=== PATIENT | male | born 1970 | race Caucasian/White ===

== ENCOUNTER 2021-05-05 03:16 | Emergency (ER) | payer OTHER, SELFPAY ==
[2021-05-05 03:28] VITALS: BP 133/82; PULSE 98; RESP 18; TEMP 36.9; O2SAT 99; BMI 29.3
--- NOTE | 2021-05-05 03:37 | ED_ITS ---
HPI - Back Pain/Injury General: Chief Complaint: Back Pain/Injury Stated Complaint: Back Pain Seized up Time Seen by Provider: 05/05/21 03:17 Source: patient Mode of arrival: ambulatory Limitations: no limitations History of Present Illness: HPI Narrative: 50-year-old male states that he has been having low back pain and spasm since Tuesday he states he woke up with it and it gets much worse after he sleeps. He states that the pain is also worse with movement improved with some rest. He states he has had this happen in the past and it feels similar to when he had spasms before denies any bowel or bladder incontinence states the pain is currently a 6 out of 10. Associated symptoms: Deny abdominal pain, chills, dysuria, fever(s), nausea or vomiting Review of Systems Const: Denies: fever(s), chills, body aches or change in appetite Eyes: Denies: blurry vision or eye discomfort ENMT: Denies: throat pain or dental pain Card: Denies: chest pain Resp: Denies: dyspnea GI: Denies: abdominal pain, nausea, vomiting or diarrhea : Denies: dysuria Musc: Reports: back pain Skin/Breast: Denies: rash Neuro: Denies: headache(s) Psych: Denies: depression Saw/Lymph: Denies: easy bruising All/Imm: Denies: urticaria Physical Exam Const: COMMON NORMALS: no acute distress, patient oriented x3 and healthy appearing HENMT: COMMON NORMALS: normocephalic and atraumatic HEAD & SCALP: normocephalic and atraumatic Eye: COMMON NORMALS: Equal, round and reactive pupils present and EOMs intact bilaterally PUPIL: Yes Equal, round and reactive pupils present Neck/C-Spine: COMMON NORMALS: full ROM and supple Chest: COMMONS NORMALS: normal inspection of the chest and normal palpation of entire chest wall Resp: COMMON NORMALS: normal respiratory effort, No retractions, No use of accessory muscles and clear to auscultation bilaterally AUSCULTATION: clear to auscultation bilaterally Cardio: COMMON NORMALS: regular rate, regular rhythm and No murmurs present (Cardio) RATE: regular rate RHYTHM: regular rhythm GI: COMMON NORMALS: Normal to inspection, nondistended, normoactive bowel sounds present, Soft to palpation, non-tender and no masses PALPATION: Yes Soft to palpation Back/Pelvis: OTHER: Muscle spasms to lower lumbar spine paraspinal tenderness no midline pain no saddle anesthesia Extremity: COMMON NORMALS: normal to inspection and full ROM Neuro: COMMON NORMALS: patient oriented x3, moves all extremities and no focal motor deficits Psych: COMMON NORMALS: mental status grossly normal, Normal thought process present and cooperative THOUGHT PROCESS: Normal thought process present Skin: COMMON NORMALS: no rashes or lesions noted and no wounds GENERAL SKIN EXAM: no rashes or lesions noted Course Vital Signs: Vital signs: Vital Signs Temperature 98.5 F 05/05/21 03:28 Pulse Rate 98 05/05/21 03:28 Respiratory Rate 18 05/05/21 03:28 Blood Pressure 133/82 05/05/21 03:28 Pulse Oximetry 99 05/05/21 03:28 MDM - Back Pain/Injury MDM Narrative: Medical decision making narrative: Patient presents for tenderness to lumbar spine likely muscle spasms paraspinal tenderness no saddle anesthesia no signs of epidural abscess or cord compression gave him Toradol Valium will prescribe him a muscle relaxant Valium and Naprosyn he is to follow- up with PCP and return if worsening he understands agrees to plan. Discharge Plan Discharge Patient Disposition: Home Clinical Impression: Strain of lumbar region, Back muscle spasm Condition: Stable Prescriptions: New methocarbamol 750 mg tablet 750 mg PO Q6H PRN (Reason: spasms) Qty: 20 RF: 0 Naprosyn 500 mg tablet 500 mg PO BID PRN (Reason: pain) Qty: 20 RF: 0 Valium 5 mg tablet 5 mg PO Q8H PRN (Reason: muscle spasm) Qty: 7 RF: 0 Discharge Orders: Discharge ED (Routine); Ordered 05/05/21 Ordered By: Mukund Cifuentes Discharge Diet: Advance as tolerated Discharge Activity: Resume usual activity Patient Instructions: Acute Low Back Pain (ED), Muscle Spasm (ED) Coding Level of Care Code ED Supervisor [employer] for Nella Cabrera
[2021-05-05] MEDS: diazePAM 5 mg Tablet PO (04:00)
[2021-05-05] MEDS: ketorolac 30 mg/mL INJ IM (04:01)
== END 2021-05-05 04:03 | disposition home or self-care (01) ==
PROVIDERS: Emergency Provider Emergency Medicine
DX: S39.012A Strain of muscle, fascia and tendon of lower back, initial encounter (principal); M62.830 Muscle spasm of back; X58.XXXA Exposure to other specified factors, initial encounter
CPT/HCPCS: 96372; 99283; J1885